=== PATIENT | female | born 1980 | race Caucasian/White ===

== ENCOUNTER → 2016-10-13 | Outpatient (REF) | payer BC | END | disposition home or self-care (01) | LOC: M SFHCWAGY 08:53 | PROVIDERS: ATTEND Nurse Practitioner Women's Health | DX: Z01.419 Encounter for gynecological examination (general) (routine) without abnormal findings (principal); Z11.51 Encounter for screening for human papillomavirus (HPV) ==

== ENCOUNTER → 2016-11-04 | Outpatient (CLI) | payer BC ==
--- NOTE | 2016-11-04 11:08 | REP ---
PELVIC SONOGRAPHY: HISTORY: Amenorrhea. Morbid obesity. FINDINGS: Transabdominal and transvaginal scanning are performed. Uterine dimensions are normal at 7.1 x 3.0 x 4.0 cm. Endometrial echo is 0.7 cm thick. Uterus is tipped somewhat to the left. No focal uterine mass is seen. Nabothian cysts are seen in the cervix. No free fluid is noted. Visualized bladder rick are smooth. The right ovary measures 3.1 x 2.0 x 3.1 cm. Left ovary dimensions of 3.1 x 2.1 x 3.8 cm. There is a peripheral pattern of small follicles in the ovaries bilaterally which can sometimes be seen in polycystic ovary disease. IMPRESSION: Small sub-centimeter peripherally oriented cysts in each ovary. Otherwise, unremarkable pelvic sonography.
== END ==
LOC: M WHC 08:27
PROVIDERS: ATTEND Nurse Practitioner Women's Health
DX: N91.2 Amenorrhea, unspecified (principal); E66.01 Morbid (severe) obesity due to excess calories; N83.201 Unspecified ovarian cyst, right side; N83.202 Unspecified ovarian cyst, left side

== ENCOUNTER → 2017-04-08 | Outpatient (CLI) | payer BC ==
--- NOTE | 2017-04-13 08:39 | SLEEPCENT ---
DATE OF PROCEDURE: 04/08/2017 REQUESTING PROVIDER: Amber Chang NP INTERPRETATION: Nocturnal polysomnography was performed due to the concern for obstructive sleep apnea syndrome in this patient with a history of excessive somnolence and nonrestorative sleep. 7 hours and 28 minutes of data were reviewed. There were 389 minutes of sleep identified. Sleep latency was prolonged at 26 minutes. Rapid eye movement (REM) sleep was not achieved. Overall sleep efficiency was 88%. The patient's electrocardiogram (EKG) showed a sinus rhythm with an average heart rate of 63 beats per minute. Electroencephalogram (EEG) showed some coarsening in background, possibly medication effect. There were 65 respiratory events identified of 10 seconds in duration or greater for an apnea-hypopnea index of 10. The events were not exclusive to sleep stage, were more frequent but not exclusive to supine posuture. Arousals from respiratory events occurred four times per hour. There was some limb activity as well, but limb movement arousals occurred only 4.8 times per hour. IMPRESSION: Obstructive sleep apnea syndrome (G47.33). Apnea-hypopnea index of 10. RECOMMENDATIONS: The patient should be encouraged to return to the sleep disorder center for pressure therapy. In the interim, alcohol and sedative avoidance should be practiced and caution exercised during the operation of motor vehicles.
== END ==
LOC: M SLEEP 19:43
PROVIDERS: ATTEND Nurse Practitioner Adult Health
DX: G47.30 Sleep apnea, unspecified (principal)

== ENCOUNTER → 2017-05-15 | Outpatient (CLI) | payer BC ==
--- NOTE | 2017-05-17 10:15 | SLEEPCENT ---
DATE OF PROCEDURE: 05/15/2017 ORDERED BY: LYNDA Andre Nocturnal polysomnography was performed for the titration of pressure therapy in this patient with obstructive sleep apnea syndrome, apnea hypopnea index of 10. For testing, the patient was fit with a ResMed AirFit F20 full face mask of small size. 4 cm of water pressure were applied to the circuit and the lights were extinguished. 7 hours and 38 minutes of data were reviewed. There were 430 minutes of sleep identified. Sleep latency was normal at 4 minutes. Rapid eye movement (REM) latency was short at 27 minutes. Sleep architecture showed very clear evidence of REM rebound. There were 260 minutes of REM sleep recorded. Overall sleep efficiency was 94.9%. The patient's EKG showed a sinus rhythm with an average heart rate of 55 beats per minute. EEG showed normal waveforms for awake and sleep. Respiratory events were fully palliated with CPAP at a pressure of +9. CPAP tolerance was good. The patient experienced REM sleep in the supine posture without respiratory event or oxygen desaturation. There was some limb activity but limb movement arousal index was normal at 2.4. Remaining measures of sleep physiology were normal. IMPRESSION: Obstructive sleep apnea syndrome (G47.33). RECOMMENDATION: Nightly use of pressure therapy 9 cm of water.
== END ==
LOC: M SLEEP 20:00
PROVIDERS: ATTEND Nurse Practitioner Adult Health
DX: G47.33 Obstructive sleep apnea (adult) (pediatric) (principal)

== ENCOUNTER → 2017-05-16 | Outpatient (REF) | payer BC ==
[2017-05-16 20:42] LABS: BASO # 0.1 K/mm3 (0.0-0.2); BASO % 0.9 % (0.0-1.0); EOS # 0.4 K/mm3 (0.0-0.50); EOS % 4.7 % (0.0-3.0); LARGE UNSTAINED CELL # 0.1 K/mm3 (0.0-0.4); LARGE UNSTAINED CELL % 1.4 % (0.0-4.0); LYMPH # 3.2 K/mm3 (1.5-4.5); LYMPH % 35.5 % (24.0-44.0); MEAN CORPUSCULAR HEMOGLOBIN 26.6 pg (27.0-33.0); MEAN CORPUSCULAR HGB CONC 32.3 g/dl (32.0-36.5); MEAN CORPUSCULAR VOLUME 82.2 fl (80.0-96.0); MONO # 0.4 K/mm3 (0.0-0.8); MONO % 4.2 % (0.0-5.0); NEUTROPHILS # 4.8 K/mm3 (1.8-7.7); NEUTROPHILS % 53.4 % (36.0-66.0); PLATELET COUNT, AUTOMATED 294 k/mm3 (150-450); RED CELL DISTRIBUTION WIDTH 12.7 % (11.5-14.5); WHITE BLOOD COUNT 8.9 K/mm3 (4.0-10.0)
[2017-05-16 21:08] LABS: ALBUMIN 3.5 GM/DL (3.2-5.2); ALBUMIN/GLOBULIN RATIO 1.03 (1.00-1.93); ALKALINE PHOSPHATASE 55 U/L (45-117); ALT/SGPT 25 U/L (12-78); ANION GAP 7 MEQ/L (8-16); AST/SGOT 21 U/L (15-37); BILIRUBIN,TOTAL 0.4 MG/DL (0.2-1.0); BLOOD UREA NITROGEN 12 MG/DL (7-18); CALCIUM LEVEL 8.2 MG/DL (8.5-10.1); CARBON DIOXIDE LEVEL 29 MEQ/L (21-32); CHLORIDE LEVEL 106 MEQ/L (98-107); CHOLESTEROL LEVEL 178 MG/DL (<200); CREATININE FOR GFR 0.73 MG/DL (0.55-1.02); GLOMERULAR FILTRATION RATE > 60.0 (>60); GLUCOSE, FASTING 73 MG/DL (70-105); POTASSIUM SERUM 4.3 MEQ/L (3.5-5.1); SODIUM LEVEL 142 MEQ/L (136-145); TOTAL PROTEIN 6.9 GM/DL (6.4-8.2); TRIGLYCERIDES LEVEL 121 MG/DL (<150)
== END ==
LOC: M SFHCADAM 18:53
PROVIDERS: ATTEND Physician Assistant Medical
DX: F17.210 Nicotine dependence, cigarettes, uncomplicated (principal); I10 Essential (primary) hypertension; E66.01 Morbid (severe) obesity due to excess calories

== ENCOUNTER → 2017-08-01 | Outpatient (CLI) | payer BC ==
--- NOTE | 2017-08-01 10:25 | REP ---
Clinical: Flu-like symptoms . Comparison: 06/24/2013 . Technique: PA and lateral. Findings: The mediastinum and cardiac silhouette are normal. The lung orellana are clear and without acute consolidation, effusion, or pneumothorax. The skeletal structures are intact and normal. Impression: 1. No acute cardiopulmonary process. Signed by Will Rubio MD 08/01/2017 10:16 A
[2017-08-01 15:46] LABS: BASO # 0.1 10^3/uL (0.0-0.2); BASO % 0.8 % (0.0-1.0); EOS # 0.4 10^3/uL (0.0-0.50); EOS % 3.5 % (0.0-3.0); IMMATURE GRANULOCYTE % 0.6 % (0-0); LYMPH # 3.6 10^3/uL (1.5-4.5); LYMPH % 35.3 % (24.0-44.0); MEAN CORPUSCULAR HEMOGLOBIN 25.5 pg (27.0-33.0); MEAN CORPUSCULAR HGB CONC 31.8 g/dl (32.0-36.5); MEAN CORPUSCULAR VOLUME 80.4 fl (80.0-96.0); MONO # 0.7 10^3/uL (0.0-0.8); MONO % 6.6 % (0.0-5.0); NEUTROPHILS # 5.4 10^3/uL (1.8-7.7); NEUTROPHILS % 53.2 % (36.0-66.0); PLATELET COUNT, AUTOMATED 328 10^3/uL (150-450); RED CELL DISTRIBUTION WIDTH 12.9 % (11.5-14.5); WHITE BLOOD COUNT 10.1 10^3/uL (4.0-10.0)
== END ==
LOC: M WUC 09:38
PROVIDERS: ATTEND Physician Assistant
DX: J09.X2 Influenza due to identified novel influenza A virus with other respiratory manifestations (principal)

== ENCOUNTER 2017-12-10 12:55 | Emergency (ER) | payer OTHER, BC | END 2017-12-10 13:39 | disposition home or self-care (01) | LOC: M ED 12:55 | DX: K04.7 Periapical abscess without sinus (principal); K02.9 Dental caries, unspecified; R68.84 Jaw pain; F17.200 Nicotine dependence, unspecified, uncomplicated; Z88.0 Allergy status to penicillin; Z91.013 Allergy to seafood; Z79.899 Other long term (current) drug therapy | CPT/HCPCS: 99282 ==

== ENCOUNTER 2018-06-13 15:08 | Emergency (ER) | payer OTHER ==
[2018-06-13 15:33] LABS: KETONE, URINE AUTO RFX NEGATIVE (NEGATIVE); LEUKOCYTE ESTERASE UR AUTO RFX NEGATIVE (NEGATIVE); MUCUS, URINE RFX SMALL (NEGATIVE); NITRITE, URINE AUTO RFX NEGATIVE (NEGATIVE); RBC, URINE AUTO RFX 5 /HPF (0-3); SPECIFIC GRAVITY UR AUTO RFX 1.029 (1.002-1.035); SQUAM EPITHELIAL CELL UR AURFX 3 /HPF (0-6); WBC, URINE AUTO RFX 1 /HPF (0-3)
[2018-06-13 15:47] LABS: CONTROL LINE UCG INT CTR LINE PRESENT; URINE PREG TEST NEGATIVE (NEGATIVE)
[2018-06-13] MEDS: MORPHINE 4 MG/ML 1ML VIAL/SYRINGE (J2270) IV (16:17)
[2018-06-13 16:33] LABS: HEMATOCRIT 43.4 % (36.0-47.0); HEMOGLOBIN 14.2 g/dl (12.0-15.5); MEAN CORPUSCULAR HEMOGLOBIN 26.8 pg (27.0-33.0); MEAN CORPUSCULAR HGB CONC 32.7 g/dl (32.0-36.5); MEAN CORPUSCULAR VOLUME 81.9 fl (80.0-96.0); PLATELET COUNT, AUTOMATED 286 10^3/uL (150-450); RED CELL DISTRIBUTION WIDTH 13.2 % (11.5-14.5)
[2018-06-13 16:36] LABS: ADD MANUAL DIFFER YES; DIFF SLIDE NUMBER 370; POSITIVE DIFF POS FLAG; WHITE BLOOD COUNT 15.3 10^3/uL (4.0-10.0)
[2018-06-13 16:56] LABS: ATYPICAL LYMPH 16 % (0-5); BASOPHILS 2 % (0-4); EOSINOPHILS 2 % (0-5); LYMPHOCYTES 19 % (16-52); MONOCYTES 4 % (0-8); NEUTROPHILS 57 % (35-75)
[2018-06-13 16:57] LABS: PLATELET ESTIMATE NORMAL (NORMAL)
[2018-06-13 17:01] LABS: ANION GAP 6 MEQ/L (8-16); BLOOD UREA NITROGEN 21 MG/DL (7-18); C REACTIVE PROTEIN QUANTITATIV 0.56 MG/DL (0.00-0.30); CARBON DIOXIDE LEVEL 25 MEQ/L (21-32); CHLORIDE LEVEL 110 MEQ/L (98-107); CREATININE FOR GFR 0.73 MG/DL (0.55-1.30); GLOMERULAR FILTRATION RATE > 60.0 (>60); GLUCOSE, FASTING 73 MG/DL (70-100); POTASSIUM SERUM 4.3 MEQ/L (3.5-5.1); SODIUM LEVEL 141 MEQ/L (136-145)
== END 2018-06-13 17:30 | disposition home or self-care (01) ==
LOC: M ED 15:08
DX: I88.0 Nonspecific mesenteric lymphadenitis (principal); Z87.442 Personal history of urinary calculi; F41.9 Anxiety disorder, unspecified; F32.9 Major depressive disorder, single episode, unspecified; Z88.0 Allergy status to penicillin; Z91.013 Allergy to seafood
CPT/HCPCS: J2270

== ENCOUNTER → 2019-11-27 | Outpatient (REF) | payer OTHER, MEDICAID ==
[~2019-11-27] MED LIST: ALEV220T26 PO; CLEO300C2 PO; HYDR-3715 PO; IBUP-1114 PO; KETO10TAB PO; SERT-138 PO; ZOFR4TAB14 PO
[2019-11-27 12:52] LABS: BASO # 0.1 10^3/uL (0.0-0.2); EOS # 0.3 10^3/uL (0.0-0.5); EOS % 2.6 % (0.0-3.0); HEMATOCRIT 46.6 % (36.0-47.0); HEMOGLOBIN 15.2 g/dl (12.0-15.5); LYMPH # 3.4 10^3/uL (1.5-5.0); LYMPH % 30.6 % (24.0-44.0); MEAN CORPUSCULAR HEMOGLOBIN 26.8 pg (27.0-33.0); MEAN CORPUSCULAR HGB CONC 32.6 g/dl (32.0-36.5); MONO % 8.7 % (0.0-5.0); NEUTROPHILS # 6.3 10^3/uL (1.5-8.5); NEUTROPHILS % 56.8 % (36.0-66.0); PLATELET COUNT, AUTOMATED 326 10^3/uL (150-450); RED BLOOD COUNT 5.68 10^6/uL (4.00-5.40)
[2019-11-27 13:06] LABS: ALBUMIN 3.9 GM/DL (3.2-5.2); ALT/SGPT 16 U/L (12-78); BILIRUBIN,TOTAL 0.5 MG/DL (0.2-1.0); BLOOD UREA NITROGEN 15 MG/DL (7-18); CALCIUM LEVEL 9.3 MG/DL (8.5-10.1); CARBON DIOXIDE LEVEL 27 MEQ/L (21-32); CHLORIDE LEVEL 107 MEQ/L (98-107); CHOLESTEROL LEVEL 157 MG/DL (<200); CHOLESTEROL RISK RATIO 3.488 (<5); CREATININE FOR GFR 0.86 MG/DL (0.55-1.30); FREE T4 1.15 NG/DL (0.76-1.46); GLOMERULAR FILTRATION RATE > 60.0 (>60); GLUCOSE, FASTING 110 MG/DL (70-100); HDL CHOLESTEROL 45 MG/DL (>40); LDL CHOLESTEROL 96 MG/DL (<100); NON-HDL-C 112 MG/DL; POTASSIUM SERUM 3.4 MEQ/L (3.5-5.1); SODIUM LEVEL 140 MEQ/L (136-145); THYROID STIMULATING HORMONE 0.797 uIU/ML (0.358-3.740); TOTAL 25(OH) VITAMIN D 8.6 NG/ML (30.0-100.0); TOTAL PROTEIN 7.3 GM/DL (6.4-8.2); TRIGLYCERIDES LEVEL 81 MG/DL (<150)
[2019-11-27 13:49] LABS: HEMOGLOBIN A1c 5.1 %
== END ==
LOC: M LAB REF 12:01
PROVIDERS: ATTEND Nurse Practitioner Family
DX: Z13.9 Encounter for screening, unspecified (principal); E66.9 Obesity, unspecified; F41.8 Other specified anxiety disorders

== ENCOUNTER → 2020-10-08 | Outpatient (REF) | payer OTHER, MEDICAID ==
[2020-10-08 17:07] LABS: BLOOD UREA NITROGEN 15 MG/DL (7-18); CALCIUM LEVEL 8.7 MG/DL (8.5-10.1); CARBON DIOXIDE LEVEL 27 MEQ/L (21-32); CHLORIDE LEVEL 109 MEQ/L (98-107); GLOMERULAR FILTRATION RATE > 60.0 (>60); GLUCOSE, FASTING 85 MG/DL (70-100); SODIUM LEVEL 142 MEQ/L (136-145)
== END ==
LOC: M LAB REF 15:39
PROVIDERS: ATTEND Family Medicine Addiction Medicine
DX: I10 Essential (primary) hypertension (principal)

== ENCOUNTER → 2020-11-24 | Outpatient (REF) | payer OTHER, MEDICAID ==
[2020-11-24 16:38] LABS: HEMOGLOBIN 13.9 g/dl (12.0-15.5); MEAN CORPUSCULAR HEMOGLOBIN 26.5 pg (27.0-33.0); MEAN CORPUSCULAR HGB CONC 31.6 g/dl (32.0-36.5); MEAN CORPUSCULAR VOLUME 83.8 fl (80.0-96.0); PLATELET COUNT, AUTOMATED 285 10^3/uL (150-450); RED BLOOD COUNT 5.25 10^6/uL (4.00-5.40); WHITE BLOOD COUNT 12.4 10^3/uL (4.0-10.0)
[2020-11-24 17:04] LABS: ALBUMIN 3.2 GM/DL (3.2-5.2); ALT/SGPT 13 U/L (12-78); BILIRUBIN,TOTAL 0.2 MG/DL (0.2-1.0); BLOOD UREA NITROGEN 14 MG/DL (7-18); CALCIUM LEVEL 8.5 MG/DL (8.5-10.1); CARBON DIOXIDE LEVEL 26 MEQ/L (21-32); CHLORIDE LEVEL 108 MEQ/L (98-107); CHOLESTEROL LEVEL 156 MG/DL (<200); CHOLESTEROL RISK RATIO 3.391 (<5); CREATININE FOR GFR 0.67 MG/DL (0.55-1.30); GLOMERULAR FILTRATION RATE > 60.0 (>60); GLUCOSE, FASTING 84 MG/DL (70-100); HDL CHOLESTEROL 46 MG/DL (>40); LDL CHOLESTEROL 98 MG/DL (<100); NON-HDL-C 110 MG/DL; POTASSIUM SERUM 4.2 MEQ/L (3.5-5.1); SODIUM LEVEL 141 MEQ/L (136-145); TOTAL 25(OH) VITAMIN D 10.2 NG/ML (30.0-100.0); TOTAL PROTEIN 6.6 GM/DL (6.4-8.2); TRIGLYCERIDES LEVEL 61 MG/DL (<150)
== END ==
LOC: M LAB REF 15:53
PROVIDERS: ATTEND Physician Assistant
DX: E55.9 Vitamin D deficiency, unspecified (principal); I10 Essential (primary) hypertension

== ENCOUNTER → 2022-06-22 | Outpatient (REF) | payer OTHER, MEDICAID | LOC: M SFHCDERM 14:23 | PROVIDERS: ATTEND Physician Assistant | DX: D10.39 Benign neoplasm of other parts of mouth (principal) ==

== ENCOUNTER → 2022-07-02 | Outpatient (REF) | payer OTHER, MEDICAID | LOC: M LAB REF 16:38 | PROVIDERS: ATTEND Physician Assistant | DX: Z12.4 Encounter for screening for malignant neoplasm of cervix (principal); Z11.3 Encounter for screening for infections with a predominantly sexual mode of transmission; Z01.419 Encounter for gynecological examination (general) (routine) without abnormal findings ==

== ENCOUNTER → 2022-08-18 | Outpatient (REF) | payer OTHER, MEDICAID ==
[2022-08-18 17:55] LABS: CHOLESTEROL RISK RATIO 4.26 (<5); HDL CHOLESTEROL 43.6 MG/DL (>40); LDL CHOLESTEROL 124.8 MG/DL (<100)
== END ==
LOC: M LAB REF 16:49
PROVIDERS: ATTEND Physician Assistant
DX: E78.5 Hyperlipidemia, unspecified (principal)

== ENCOUNTER → 2023-02-21 | Outpatient (REF) | payer OTHER, MEDICAID ==
[2023-02-21 17:46] LABS: ALBUMIN 3.3 G/DL (3.2-5.2); ALKALINE PHOSPHATASE 61 U/L (46-116); ALT/SGPT 9 U/L (7.0-40); AST/SGOT 10 U/L (<34); BILIRUBIN,TOTAL 0.2 MG/DL (0.3-1.2); BLOOD UREA NITROGEN 11 MG/DL (9-23); CARBON DIOXIDE LEVEL 28 MMOL/L (20-31); CHLORIDE LEVEL 110 MMOL/L (98-107); CHOLESTEROL LEVEL 159 MG/DL (<200); CHOLESTEROL RISK RATIO 3.59 (<5); CREATININE FOR GFR 0.76 MG/DL (0.55-1.30); GLOMERULAR FILTRATION RATE > 60.0 (>58); GLUCOSE, FASTING 80 MG/DL (60-100); HDL CHOLESTEROL 44.2 MG/DL (>40); LDL CHOLESTEROL 98.4 MG/DL (<100); NON-HDL-C 114.8 MG/DL; POTASSIUM SERUM 4.3 MMOL/L (3.5-5.1); SODIUM LEVEL 141 MMOL/L (136-145); TOTAL PROTEIN 6.1 G/DL (5.7-8.2); TRIGLYCERIDES LEVEL 82 MG/DL (<150)
== END ==
LOC: M LAB REF 16:28
PROVIDERS: ATTEND Physician Assistant
DX: I10 Essential (primary) hypertension (principal); E78.5 Hyperlipidemia, unspecified

== ENCOUNTER → 2023-04-18 | Outpatient (REF) | payer OTHER, MEDICAID ==
[2023-04-18 17:20] LABS: BLOOD UREA NITROGEN 10 MG/DL (9-23); CALCIUM LEVEL 8.8 MG/DL (8.5-10.1); CARBON DIOXIDE LEVEL 25 MMOL/L (20-31); CHLORIDE LEVEL 111 MMOL/L (98-107); GLOMERULAR FILTRATION RATE > 60.0 (>58); GLUCOSE, FASTING 90 MG/DL (60-100); POTASSIUM SERUM 4.1 MMOL/L (3.5-5.1); SODIUM LEVEL 141 MMOL/L (136-145)
[2023-04-18 17:22] LABS: THYROID STIMULATING HORMONE 2.041 uIU/ML (0.55-4.78)
== END ==
LOC: M LAB REF 16:30
PROVIDERS: ATTEND Physician Assistant
DX: I10 Essential (primary) hypertension (principal); R60.0 Localized edema

== ENCOUNTER → 2023-11-30 | Outpatient (REF) | payer OTHER, MEDICAID ==
[2023-11-30 16:58] LABS: HEMATOCRIT 41.7 % (36.0-47.0); HEMOGLOBIN 14.1 g/dl (12.0-15.5); MEAN CORPUSCULAR HEMOGLOBIN 27.6 pg (27.0-33.0); MEAN CORPUSCULAR HGB CONC 33.8 g/dl (32.0-36.5); MEAN CORPUSCULAR VOLUME 81.8 fl (80.0-96.0); PLATELET COUNT, AUTOMATED 293 10^3/uL (150-450); WHITE BLOOD COUNT 10.5 10^3/uL (4.0-10.0)
[2023-11-30 17:31] LABS: ALKALINE PHOSPHATASE 67 U/L (46-116); ALT/SGPT < 9 U/L (7.0-40); AST/SGOT 12 U/L (<34); BILIRUBIN,TOTAL 0.2 MG/DL (0.3-1.2); BLOOD UREA NITROGEN 17 MG/DL (9-23); CALCIUM LEVEL 8.4 MG/DL (8.5-10.1); CARBON DIOXIDE LEVEL 26 MMOL/L (20-31); CHLORIDE LEVEL 111 MMOL/L (98-107); CHOLESTEROL LEVEL 144 MG/DL (<200); CHOLESTEROL RISK RATIO 3.78 (<5); CREATININE FOR GFR 0.66 MG/DL (0.55-1.30); GLOMERULAR FILTRATION RATE > 60.0 (>58); GLUCOSE, FASTING 98 MG/DL (60-100); POTASSIUM SERUM 4.8 MMOL/L (3.5-5.1); SODIUM LEVEL 136 MMOL/L (136-145); TOTAL PROTEIN 6.1 G/DL (5.7-8.2); TRIGLYCERIDES LEVEL 100 MG/DL (<150)
[2023-11-30 17:32] LABS: THYROID STIMULATING HORMONE 1.794 uIU/ML (0.55-4.78)
[2023-11-30 17:34] LABS: TOTAL 25(OH) VITAMIN D 9.9 NG/ML (20.0-100.0)
== END ==
LOC: M LAB REF 16:23
PROVIDERS: ATTEND Physician Assistant
DX: I10 Essential (primary) hypertension (principal); E55.9 Vitamin D deficiency, unspecified

== ENCOUNTER → 2024-03-23 | Outpatient (REF) | payer OTHER, MEDICAID | LOC: M LAB REF 16:16 | PROVIDERS: ATTEND Physician Assistant | DX: E55.9 Vitamin D deficiency, unspecified (principal) ==

== ENCOUNTER → 2024-05-24 | Outpatient (REF) | payer OTHER, MEDICAID | LOC: M LAB REF 17:45 | PROVIDERS: ATTEND Physician Assistant | DX: Z12.4 Encounter for screening for malignant neoplasm of cervix (principal); Z01.419 Encounter for gynecological examination (general) (routine) without abnormal findings; Z11.3 Encounter for screening for infections with a predominantly sexual mode of transmission ==

== ENCOUNTER → 2024-07-10 | Outpatient (CLI) | payer OTHER | LOC: M WHC 08:34 | PROVIDERS: ATTEND Physician Assistant | DX: R92.2 Inconclusive mammogram (principal) ==

== ENCOUNTER → 2025-05-11 | Outpatient (CLI) | payer OTHER ==
[2025-05-11 11:13] LABS: PLATELET COUNT, AUTOMATED 315 10^3/uL (150-450)
[2025-05-11 11:32] LABS: ALT/SGPT 12 U/L (7.0-40); AST/SGOT 16 U/L (<34); CALCIUM LEVEL 9.1 MG/DL (8.5-10.1); CARBON DIOXIDE LEVEL 27 MMOL/L (20-31); CHLORIDE LEVEL 110 MMOL/L (98-107); CHOLESTEROL LEVEL 174 MG/DL (<200); CHOLESTEROL RISK RATIO 4.18 (<5); CREATININE FOR GFR 0.76 MG/DL (0.55-1.30); GLOMERULAR FILTRATION RATE > 90.0 (>58); LDL CHOLESTEROL 114.2 MG/DL (<100); NON-HDL-C 132.4 MG/DL; POTASSIUM SERUM 4.4 MMOL/L (3.5-5.1); SODIUM LEVEL 144 MMOL/L (136-145); TRIGLYCERIDES LEVEL 91 MG/DL (<150)
[2025-05-11 11:33] LABS: TOTAL 25(OH) VITAMIN D 35.1 NG/ML (20.0-100.0)
== END ==
LOC: M LAB 09:44
PROVIDERS: ATTEND Physician Assistant
DX: I10 Essential (primary) hypertension (principal); E55.9 Vitamin D deficiency, unspecified